=== PATIENT | female | born 1935 | race Caucasian/White ===

== ENCOUNTER 2016-05-17 20:49 | Inpatient (IN) | payer OTHER ==
[~2016-05-17] VITALS: Ht 167.6 cm; Wt 82.4 kg
--- NOTE | 2016-05-17 21:13 | History and Physical ---
History & Physical Date & Time of Service: May 17, 2016 at 21:10 Chief Complaint: Chest Pain Primary Care Physician: Erasmo Donaldson MD. ([place]) History of Present Illness Source: patient Mrs Abi Lee is an 81 year old female with history of atrial fibrillation (on coumadin) & type 2 diabetes mellitus who initially presented to the [facility] ER today for evaluation of a fall that happened on SaturdayMay 11. She reports she fell onto her left side when standing up but did not seek medical attention , and that she hit her head. Today she was encouraged to come to the ED by her children after she had an episode of losing her hearing bilaterally while watching [place] [employer] in the morning. She went to the ED and CT of her head demonstrated two masses present, which were new. She was found to have a mild troponin elevation of 0.12 and a creatinine elevation of 2.4, and an INR of 4.3 initially. As there was no MRI in [facility] she was transferred here for further evaluation. The patient was informed about the findings of her CT scan. She is also grieving the passing of her who she was to for 63 years. She denies any chest pain, shortness of breath, or leg swelling. She denies any visual changes or persistent headaches. Past Medical/Surgical History PMHx: - Type 2 DM - Atrial fibrillation, on coumadin - Gout - Hypertension - Hyperlipidemia PSHx: - None Family History No pertinent FHx Social History Smoking Status: Never Smoker Alcohol Use: none Drug Use: none Marital Status: Housing status: lives with family Occupational Status: retired Allergies Coded Allergies: Adhesives (Verified Adverse Reaction, Unknown, RASH, 05/17/16) Iodine (Verified Adverse Reaction, Unknown, HIVES, 05/17/16) Phytonadione (Verified Adverse Reaction, Unknown, GI SYMPTOMS, 05/17/16) Home Medications Scheduled Allopurinol (Zyloprim), 1 TAB PO DAILY Aspirin (Aspirin Ec), 81 MG PO DAILY Atenolol (Tenormin), 100 MG PO DAILY Furosemide (Lasix), 40 MG PO DAILY Losartan Potassium (Cozaar), 1 TAB PO DAILY Simvastatin (Zocor), 1 TAB PO HS Warfarin Sod (Jantoven), 5 MG PO DAILY Review of Systems See HPI for pertinent positives & negatives. A total of 10 systems reviewed and were otherwise negative. Physical Exam Vital Signs Date Time Temp Pulse Resp B/P Pulse Ox O2 Delivery O2 Flow Rate FiO2 05/17/16 21:34 36.8 73 20 121/54 94 Room Air General Appearance: WD/WN, no apparent distress Head: normocephalic, atraumatic Eyes: normal inspection, PERRL ENT: hearing grossly normal Neck: supple, no JVD Respiratory/Chest: chest non-tender, lungs clear, normal breath sounds Cardiovascular: regular rate, rhythm, no murmur, normal peripheral pulses Abdomen/GI: normal bowel sounds, non tender, soft, + distended Back: no CVA tenderness, no muscle spasm Extremities/Musculoskelatal: no calf tenderness Neurologic/Psych: alert, normal mood/affect, normal reflexes, oriented x 3 Skin: no rash Diagnostics Laboratory Results Results Past 24 Hours Test 05/17/16 21:03 Range/Units EKG A fib, T wave inversion in lateral leads, no previous EKG available Impression Assessment and Plan PROBLEM LIST: 1. Cerebral mass x2 on CT scan 2. Acute renal insufficiency 3. Supratherapeutic INR (mildly) 4. Mild troponin elevation 5. Fall PLAN: NEURO: We will obtain a Brain MRI WITHOUT contrast now, as apparently she has a Contrast allergy to all iodine dyes which causes hives. We will obtain a Brain MRA without contrast as well. We will consult Neurology for review in the AM. CARDIAC: We will trend her cardiac enzymes and place her on telemetry monitoring. We will hold her coumadin today and re-assess this tomorrow. RENAL: We will provide gentle fluid rehydration and monitor her kidney function ENDO: BSG's AC and HS and we will use a sliding scale to keep her sugars between 140-180. CODE STATUS: DNR VTE Prophylaxis VTE Risk Assessment Done? Y/N: Yes Risk Level: Moderate Given or contraindicated: SCD's Resident Tracking Resident Involvement: Resident Care Provided Care Provided: Adult Hospital Medicine Assessment and Plan ATTENDING ADDENDUM: I have seen and examined this patient, have directed their medical care, have supervised the resident's activity and agree with the H&P as noted above, with the additions below. History of Present Illness: The patient is an 81-year-old female with a history of chronic A. fib, on Coumadin who had a history of falling on May 11, hitting her head, and did not seek medical care until seen at [facility] emergency department earlier in the day on May 17, due to an episode of loss of hearing bilaterally. During that workup, CT of the head demonstrated to masses present , mildly elevated troponin of 0.12, and creatinine elevation at 2.4 with a supratherapeutic INR of 4.3. She was transferred to [facility] to undergo further evaluation. An MRI performed at this facility, demonstrated subarachnoid hemorrhages bilaterally left greater than right, with a normal MRA of the head. Due to this new finding of intracranial bleeding, the patient is being transferred to [facility] on in the neurosurgical service with accepting physician Dr. Jacome. Review of Systems: The patient denies chest pain, palpitations, shortness of breath, cough, lower extremity swelling, vision change, sore throat, fevers, chills, sweats, weight change, fatigue, nausea, vomiting, abdominal pain, pelvic pain, blood in urine or stool, dysuria, urinary frequency or urgency, memory loss, rash, abnormal bruising or bleeding, imbalance, focal or generalized weakness, numbness or tingling in arms or legs, arthralgias or myalgias, back or neck pain, night sweats, or allergy symptoms. The review of systems is otherwise negative other than for that already noted above, and at least 10 systems have been reviewed. Physical Examination: The patient is awake, well-developed and adequately nourished, alert and oriented 3, normocephalic and atraumatic, lying in bed and in no acute distress. HEENT--PERRL, EOMI, mucous membranes moist, and oropharynx normal. Neck--supple, no JVD or bruits, thyroid normal, trachea midline, no adenopathy. Heart--normal S1 and S2, no extra beats, no murmurs, rubs or gallops. Lungs--clear bilaterally with good air movement, no respiratory distress, no accessory muscle use. Abdomen--normal bowel sounds and soft, nontender and nondistended, no hernias or masses, no organomegaly. Extremities--no cyanosis, clubbing or edema. There are good distal pulses b/l. Dermatologic--normal skin turgor, normal color, warm and dry, no abnormal lymph nodes, no rash. Neurologic--cranial nerves II through XII grossly intact, motor and sensory examination normal. Rheumatologic--normal range of motion, nontender, muscles and joints. Psychiatric--normal affect. Imaging Studies: MRI of the Head: There are small linear high T1 signal intensity foci in the sylvian fissures, left greater than right. In combination with outside facility CT head, this is suspicious for a small amount of subarachnoid hemorrhage. No obvious mass/mass effect on this noncontrast examination. Consider follow-up CT head to ensure stability. MRA of the Head: No acute vascular abnormality. Assessment and plan: Bilateral subarachnoid hemorrhage, in the sylvian fissures, left greater than right--the patient's present INR is 3.5. Which will be reversed with vitamin K 10 mg IV, and Kcentra 2000 units IV. She'll be kept nothing by mouth except meds at this time, and will be transferred to [facility] neurosurgery service. Place on half-normal saline with potassium chloride 20 mEq at 100 ML's per hour. Atrial fibrillation/NSTEMI--continue atenolol 100 mg by mouth daily, losartan 50 mg by mouth daily,. Hold aspirin 81 mg by mouth daily, and furosemide 40 mg by mouth daily. EKG shows atrial fibrillation rate controlled, with T-wave inversions in inferior laterally, likely secondary to present neurologic state. Will need an echocardiogram for follow-up. Diabetes mellitus--place on Accu-Cheks before meals and at bedtime with NovoLog coverage. Renal insufficiency--creatinine of 2.0, IV fluids as above, and follow serial PRP. Would order renal ultrasound if creatinine persistently elevated. Hypercholesterolemia--continue simvastatin 10 mg by mouth at bedtime. Gout--continue allopurinol 300 mg by mouth daily.
[2016-05-17] MEDS ORDERED: ONDANSETRON INJ 2 MG/ML 2 ML VIAL IV PRN (21:15)
[2016-05-17] MEDS ORDERED: MAGNESIUM HYDROXIDE SUSP 30 ML UDC PO PRN (21:15)
[2016-05-17] MEDS ORDERED: NITROGLYCERIN 0.4 MG SL PER TAB CHARGE SL PRN (21:15)
[2016-05-17] MEDS ORDERED: POLYETHYLENE (MIRALAX) 17 GM PACK PO PRN (21:15)
[2016-05-17] MEDS ORDERED: ACETAMINOPHEN 325 MG TAB PO PRN (21:15)
[2016-05-17] MEDS ORDERED: SIMV10TA2 PO (21:27)
[2016-05-17] MEDS ORDERED: LOSA50TA54 PO (21:27)
[2016-05-17] MEDS ORDERED: ASPI81TA28 PO (21:27)
[2016-05-17] MEDS ORDERED: FRS/40 PO (21:27)
[2016-05-17] MEDS ORDERED: WARF5TAB7 PO (21:27)
[2016-05-17] MEDS ORDERED: ALLO300T2 PO (21:27)
[2016-05-17] MEDS ORDERED: ATEN-175 PO (21:27)
[2016-05-17] MEDS ORDERED: SODIUM CHLOR 0.45% + 20MEQ KCL 1,000 ML IV SCH (21:30)
[2016-05-17 21:34] VITALS: BP 121/54; PULSE 73; TEMP 36.8; O2SAT 94; Ht 167.6 cm; Wt 82.4 kg
[2016-05-17 21:49] LABS: BASO % 0.3 %; BASO ABS # 0.02 K/uL (0-0.2); COMPLETE YES; EOS % 2.9 %; HEMATOCRIT 28.6 % (37-47); IG% 0.3 %; LYMPH % 13.8 %; LYMPH ABS # 0.97 K/uL (1.2-3.4); MEAN CELL VOLUME 94.4 fL (80-100); MEAN CORPUSCULAR HGB CONC 33.9 g/dl (32-36); MEAN PLATELET VOLUME 9.6 fL (7.4-10.4); MONO % 8.3 %; NEUT % 74.4 %; PLATELET COUNT 136 K/uL (130-400); RED BLOOD COUNT 3.03 M/uL (4.2-5.4); WHITE BLOOD COUNT 7.01 K/uL (4.8-10.8)
[2016-05-17 21:58] LABS: INR 3.5 (0.9-1.1); PROTHROMBIN TIME (PATIENT) 38.9 SECONDS (9.0-12.0)
[2016-05-17] MEDS ORDERED: NITROGLYCERIN OINT 2% 1GM PACKET EXT SCH (22:00)
[2016-05-17 22:19] LABS: BUN/CREATININE RATIO 32.1 (10-20); CALCIUM 8.9 mg/dl (8.5-10.1); POTASSIUM 4.2 mmol/L (3.5-5.1)
[2016-05-17 22:26] LABS: CKMB/CK RATIO 2.3 (0-3.0)
[2016-05-18 00:14] VITALS: BP 106/64; PULSE 73; TEMP 37; O2SAT 97
[2016-05-18] MEDS ORDERED: PHYTONADIONE INJ 10 MG in SODIUM CHLORIDE 0.9% 50ML 50 ML IV STA (00:47)
[2016-05-18 01:12] LABS: BASO % 0.3 %; BASO ABS # 0.02 K/uL (0-0.2); COMPLETE YES; EOS % 2.2 %; HEMATOCRIT 28.3 % (37-47); IG% 0.2 %; LYMPH % 12.7 %; LYMPH ABS # 0.82 K/uL (1.2-3.4); MEAN CELL VOLUME 95.9 fL (80-100); MEAN CORPUSCULAR HEMOGLOBIN 32.2 pg (25-34); MEAN CORPUSCULAR HGB CONC 33.6 g/dl (32-36); MEAN PLATELET VOLUME 9.9 fL (7.4-10.4); MONO % 7.6 %; PLATELET COUNT 133 K/uL (130-400); RED BLOOD COUNT 2.95 M/uL (4.2-5.4); WHITE BLOOD COUNT 6.46 K/uL (4.8-10.8)
[2016-05-18] MEDS ORDERED: PROTHROMBIN COMP CONC- KCENTRA 2,000 UNIT in SYRINGE 0 ML IV STA (01:17)
[2016-05-18 01:22] LABS: INR 3.4 (0.9-1.1)
[2016-05-18 01:37] LABS: CKMB/CK RATIO 2.8 (0-3.0)
--- NOTE | 2016-05-18 02:04 | Progress Note ---
Progress Note Update: Received MRI report from [facility] - pt has subarachnoid hemorrhages Discussed with attending Called [facility] and discussed with Neurosurgery for transfer for evaluation Patient signed consent for transfer to [facility] Attempted to call daughter Isabel twice, no answer, voicemail left for her to call hospital Attempted to call son Farshad - [phone] - no answer, voicemail left for him to call back but is listed as next of kin - to be changed in EMR and on facesheet to [facility] transfer [phone] Isabel (worked) [phone] Isabel, Both Isabel and Farshad called back immediately and plan of care was agreed upon. 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
--- NOTE | 2016-05-18 02:08 | Discharge Instructions ---
Discharge Instructions Admission Reason for Admission: Chest Pain Discharge Discharge Diagnosis / Problem: Subarachnoid Hemorrhage Discharge Goals Goal(s): Specific goals (Neurosurgery evaluation) Activity Recommendations Activity Level: Ambulates in room . Additional Information Patient informed of condition: Yes Advance Directives: Yes DNR: Yes Level of Care: Other [place] [place] Communicable Disease: No Prognosis: Other Resendez Catheter: No Current Hospital Diet Patient's current hospital diet: Renal Diet, AHA Diet (Heart Healthy) Discharge Diet Recommended Diet: Regular Diet Procedures Procedures Performed: MRI brain - Subarachnoid hemorrhage Pending Studies Studies pending at discharge: no Medical Emergencies . Who to Call and When: Medical Emergencies: If at any time you feel your situation is an emergency, please call 911 immediately. . Non-Emergent Contact Non-Emergency issues call your: Specialist . . "Provider Documentation" section prepared by Pam Singh. Core Measure Problem Core Measures: None
[2016-05-18 02:16] VITALS: BP 106/64; PULSE 73; TEMP 37; O2SAT 97
--- NOTE | 2016-05-18 05:36 | Discharge Summary ---
Discharge Summary Admission Date: May 17, 2016 at 20:49 Discharge Date: May 18, 2016 Discharge Disposition: Acute care facility ([facility]) Principal Diagnosis: Subarachnoid Hemorrhage Problems/Secondary Diagnoses: Fall T2DM Atrial fibrillation on coumadin Acute kidney injury (Pam Singh MD) Medication Reconciliation Continued Medications: Atenolol (Tenormin) 100 Mg Tab 100 MG PO DAILY for 3 Days, #3 TAB Furosemide (Lasix) 40 Mg Tab 40 MG PO DAILY for 30 Days, #30 TAB Losartan Potassium (Cozaar) 50 Mg Tab 1 TAB PO DAILY for 90 Days, #90 TAB 1 Refill Simvastatin (Zocor) 10 Mg Tab 1 TAB PO HS for 30 Days, #30 TAB 5 Refills Discontinued Medications: Allopurinol (Zyloprim) 300 Mg Tab 1 TAB PO DAILY for 30 Days, #30 TAB 5 Refills Aspirin (Aspirin Ec) 81 Mg Tab 81 MG PO DAILY for 30 Days Warfarin Sod (Jantoven) 5 Mg Tab 5 MG PO DAILY for 30 Days, #30 TAB Discharge Exam See below. (Pam Singh MD) Hospital Course History of Present Illness: The patient is an 81-year-old female with a history of chronic A. fib, on Coumadin who had a history of falling on May 11, hitting her head, and did not seek medical care until seen at [facility] emergency department earlier in the day on May 17, due to an episode of loss of hearing bilaterally. During that workup, CT of the head demonstrated to masses present , mildly elevated troponin of 0.12, and creatinine elevation at 2.4 with a supratherapeutic INR of 4.3. She was transferred to [facility] to undergo further evaluation. An MRI performed at this facility, demonstrated subarachnoid hemorrhages bilaterally left greater than right, with a normal MRA of the head. Due to this new finding of intracranial bleeding, the patient is being transferred to [facility] on in the neurosurgical service with accepting physician Dr. Jacome. Review of Systems: The patient denies chest pain, palpitations, shortness of breath, cough, lower extremity swelling, vision change, sore throat, fevers, chills, sweats, weight change, fatigue, nausea, vomiting, abdominal pain, pelvic pain, blood in urine or stool, dysuria, urinary frequency or urgency, memory loss, rash, abnormal bruising or bleeding, imbalance, focal or generalized weakness, numbness or tingling in arms or legs, arthralgias or myalgias, back or neck pain, night sweats, or allergy symptoms. The review of systems is otherwise negative other than for that already noted above, and at least 10 systems have been reviewed. Physical Examination: The patient is awake, well-developed and adequately nourished, alert and oriented 3, normocephalic and atraumatic, lying in bed and in no acute distress. HEENT--PERRL, EOMI, mucous membranes moist, and oropharynx normal. Neck--supple, no JVD or bruits, thyroid normal, trachea midline, no adenopathy. Heart--normal S1 and S2, no extra beats, no murmurs, rubs or gallops. Lungs--clear bilaterally with good air movement, no respiratory distress, no accessory muscle use. Abdomen--normal bowel sounds and soft, nontender and nondistended, no hernias or masses, no organomegaly. Extremities--no cyanosis, clubbing or edema. There are good distal pulses b/l. Dermatologic--normal skin turgor, normal color, warm and dry, no abnormal lymph nodes, no rash. Neurologic--cranial nerves II through XII grossly intact, motor and sensory examination normal. Rheumatologic--normal range of motion, nontender, muscles and joints. Psychiatric--normal affect. Imaging Studies: MRI of the Head: There are small linear high T1 signal intensity foci in the sylvian fissures, left greater than right. In combination with outside facility CT head, this is suspicious for a small amount of subarachnoid hemorrhage. No obvious mass/mass effect on this noncontrast examination. Consider follow-up CT head to ensure stability. MRA of the Head: No acute vascular abnormality. Assessment and plan: Bilateral subarachnoid hemorrhage, in the sylvian fissures, left greater than right--the patient's present INR is 3.5. Which will be reversed with vitamin K 10 mg IV, and Kcentra 2000 units IV. She'll be kept nothing by mouth except meds at this time, and will be transferred to [facility] neurosurgery service. Place on half-normal saline with potassium chloride 20 mEq at 100 ML's per hour. Atrial fibrillation/NSTEMI--continue atenolol 100 mg by mouth daily, losartan 50 mg by mouth daily,. Hold aspirin 81 mg by mouth daily, and furosemide 40 mg by mouth daily. EKG shows atrial fibrillation rate controlled, with T-wave inversions in inferior laterally, likely secondary to present neurologic state. Will need an echocardiogram for follow-up. Diabetes mellitus--place on Accu-Cheks before meals and at bedtime with NovoLog coverage. Renal insufficiency--creatinine of 2.0, IV fluids as above, and follow serial PRP. Would order renal ultrasound if creatinine persistently elevated. Hypercholesterolemia--continue simvastatin 10 mg by mouth at bedtime. Gout--continue allopurinol 300 mg by mouth daily. Total Time Spent: Greater than 30 minutes This includes examination of the patient, discharge planning, medication reconciliation, and communication with other providers. (Pam Singh MD) Discharge Instructions Please refer to the electronic Patient Visit Report (Discharge Instructions) for additional information. (Pam Singh MD) Assessment and Plan ATTENDING ADDENDUM: I have seen and examined this patient, have directed their medical care, have supervised the resident's activity and agree with the H&P as noted above, with the additions below. History of Present Illness: The patient is an 81-year-old female with a history of chronic A. fib, on Coumadin who had a history of falling on Saturday, May 11, hitting her head, and did not seek medical care until seen at [facility] emergency department earlier in the day on May 17, due to an episode of loss of hearing bilaterally. During that workup, CT of the head demonstrated to masses present , mildly elevated troponin of 0.12, and creatinine elevation at 2.4 with a supratherapeutic INR of 4.3. She was transferred to [facility] to undergo further evaluation. An MRI performed at this facility, demonstrated subarachnoid hemorrhages bilaterally left greater than right, with a normal MRA of the head. Due to this new finding of intracranial bleeding, the patient is being transferred to [facility] on in the neurosurgical service with accepting physician Dr. Jacome. Review of Systems: The patient denies chest pain, palpitations, shortness of breath, cough, lower extremity swelling, vision change, sore throat, fevers, chills, sweats, weight change, fatigue, nausea, vomiting, abdominal pain, pelvic pain, blood in urine or stool, dysuria, urinary frequency or urgency, memory loss, rash, abnormal bruising or bleeding, imbalance, focal or generalized weakness, numbness or tingling in arms or legs, arthralgias or myalgias, back or neck pain, night sweats, or allergy symptoms. The review of systems is otherwise negative other than for that already noted above, and at least 10 systems have been reviewed. Physical Examination: The patient is awake, well-developed and adequately nourished, alert and oriented 3, normocephalic and atraumatic, lying in bed and in no acute distress. HEENT--PERRL, EOMI, mucous membranes moist, and oropharynx normal. Neck--supple, no JVD or bruits, thyroid normal, trachea midline, no adenopathy. Heart--normal S1 and S2, no extra beats, no murmurs, rubs or gallops. Lungs--clear bilaterally with good air movement, no respiratory distress, no accessory muscle use. Abdomen--normal bowel sounds and soft, nontender and nondistended, no hernias or masses, no organomegaly. Extremities--no cyanosis, clubbing or edema. There are good distal pulses b/l. Dermatologic--normal skin turgor, normal color, warm and dry, no abnormal lymph nodes, no rash. Neurologic--cranial nerves II through XII grossly intact, motor and sensory examination normal. Rheumatologic--normal range of motion, nontender, muscles and joints. Psychiatric--normal affect. Imaging Studies: MRI of the Head: There are small linear high T1 signal intensity foci in the sylvian fissures, left greater than right. In combination with outside facility CT head, this is suspicious for a small amount of subarachnoid hemorrhage. No obvious mass/mass effect on this noncontrast examination. Consider follow-up CT head to ensure stability. MRA of the Head: No acute vascular abnormality. Assessment and plan: Bilateral subarachnoid hemorrhage, in the sylvian fissures, left greater than right--the patient's present INR is 3.5. Which will be reversed with vitamin K 10 mg IV, and Kcentra 2000 units IV. She'll be kept nothing by mouth except meds at this time, and will be transferred to [facility] neurosurgery service. Place on half-normal saline with potassium chloride 20 mEq at 100 ML's per hour. Atrial fibrillation/NSTEMI--continue atenolol 100 mg by mouth daily, losartan 50 mg by mouth daily,. Hold aspirin 81 mg by mouth daily, and furosemide 40 mg by mouth daily. EKG shows atrial fibrillation rate controlled, with T-wave inversions in inferior laterally, likely secondary to present neurologic state. Will need an echocardiogram for follow-up. Diabetes mellitus--place on Accu-Cheks before meals and at bedtime with NovoLog coverage. Renal insufficiency--creatinine of 2.0, IV fluids as above, and follow serial PRP. Would order renal ultrasound if creatinine persistently elevated. Hypercholesterolemia--continue simvastatin 10 mg by mouth at bedtime. Gout--continue allopurinol 300 mg by mouth daily. (Noah Cabrales M.D.)
--- NOTE | 2016-05-18 06:51 | DIAGNOSTIC IMAGING REPORT ---
MRI OF THE BRAIN WITHOUT CONTRAST CLINICAL HISTORY: New masses on CT head from [facility]. Recent fall. COMPARISON STUDY: Head CT May 17, 2016. TECHNIQUE: Utilizing a 1.5 Sarah magnet and dedicated coil, multiplanar, multiecho imaging of the brain was performed without IV contrast. FINDINGS: There are no areas of restricted diffusion. No acute intracranial hemorrhage, midline shift or mass effect is present. The study is mildly compromised by motion artifact but is diagnostic. Ventricular system is unremarkable. The basilar cisterns are patent. There is a small amount of T1 hyperintense fluid within the sylvian fissures, left greater than right. This corresponds to the hyperdense abnormality on head CT. No intracranial masses are identified on this unenhanced exam. Numerous white matter T2 hyperintense foci suggest small vessel disease. Calvarial signal is maintained. IMPRESSION: 1. Minimal T1 hyperintense material within the bilateral sylvian fissures, left greater than right, consistent with subarachnoid hemorrhage which corresponds to the hyperdense abnormality on head CT from May 17, 2016. A short-term follow-up head CT in 12 to 24 hours is recommended. 2. No intracranial mass on this unenhanced exam. Electronically signed by: Hal Fink M.D. 05/18/2016 6:49 AM Dictated Date/Time: 05/18/2016 6:44 AM
--- NOTE | 2016-05-18 07:18 | DIAGNOSTIC IMAGING REPORT ---
MR ANGIOGRAM OF THE BRAIN CLINICAL HISTORY: Intracranial mass. Subarachnoid hemorrhage. COMPARISON STUDY: MRI of the brain performed concurrently on 05/17/2016. TECHNIQUE: 3-D [id number] MR angiography of the intracranial circulation is performed. 3-D tumble views are created and assessed. IV contrast was not administered for this examination. FINDINGS: The internal carotid arteries are widely patent bilaterally, as are the anterior and middle cerebral arteries. The vertebrobasilar system and posterior cerebral arteries are widely patent. The left vertebral artery is dominant. There is no aneurysm, high-grade stenosis, or focal vessel cutoff seen throughout the intracranial circulation. IMPRESSION: Unremarkable MR angiogram of the brain. Electronically signed by: Omero Fountain M.D. 05/18/2016 7:17 AM Dictated Date/Time: 05/18/2016 7:15 AM
[2016-05-18] MEDS ORDERED: ASPIRIN 81 MG ECTAB PO SCH (09:00)
[2016-05-18] MEDS ORDERED: HEPARIN SOD 5000 UNIT/0.5 ML CARP SQ SCH (09:00)
[2016-05-18] MEDS ORDERED: FUROSEMIDE 40 MG TAB PO SCH (09:00)
[2016-05-18] MEDS ORDERED: LOSARTAN POTASSIUM 50 MG TAB PO SCH (09:00)
[2016-05-18] MEDS ORDERED: SIMVASTATIN 10 MG TAB PO SCH (21:00)
== END 2016-05-18 02:10 | disposition short-term general hospital (02) | DRG 85 ==
LOC: C.2T 20:49
PROVIDERS: ADMIT Internal Medicine; ATTEND Internal Medicine
DX: S06.6X0A Traumatic subarachnoid hemorrhage without loss of consciousness, initial encounter (principal); I21.4 Non-ST elevation (NSTEMI) myocardial infarction; N17.9 Acute kidney failure, unspecified; W19.XXXA Unspecified fall, initial encounter; H91.93 Unspecified hearing loss, bilateral; R79.89 Other specified abnormal findings of blood chemistry; R79.1 Abnormal coagulation profile; I48.2 Chronic atrial fibrillation; E11.9 Type 2 diabetes mellitus without complications; M10.9 Gout, unspecified; I10 Essential (primary) hypertension; E78.5 Hyperlipidemia, unspecified; E78.00 Pure hypercholesterolemia, unspecified; Z66 Do not resuscitate; Z79.01 Long term (current) use of anticoagulants; Z79.82 Long term (current) use of aspirin; Z79.899 Other long term (current) drug therapy